=== PATIENT | male | born 1955 | race Caucasian/White ===

== ENCOUNTER 2018-04-19 16:00 | Inpatient (IN) ==
[2018-04-19 18:58] LABS: Appearance,Urine CLEAR; Bilirubin,Urine NEG (NEG); Color,Urine YELLOW; Glucose,Urine (UA) NEGATIVE (NEG); Leukocyte Esterase,Urine NEG /uL (NEG); Protein,Urine NEG (NEG); Specific Gravity,Urine 1.017 (1.000-1.035); Urine Blood NEG mg/dL (<0.03)
[2018-04-19 19:15] LABS: Basophils # (Auto) 0 K/mcL (0.0-0.3); Basophils % (Auto) 0.4 % (0.0-2.0); Eosinophils # (Auto) 0.1 K/mcL (0.0-0.7); Eosinophils % (Auto) 1.3 % (0.0-7.0); Granulocytes % (Auto) 60.9 % (38.0-78.0); Lymphocytes # (Auto) 1.6 K/mcL (1.5-4.8); Lymphocytes % (Auto) 27.7 % (15.5-49.0); Mean Cell Volume 101.3 fL (80.0-100.0); Mean Corpuscular Hemoglobin 34.5 pg (26.0-34.0); Monocytes # (Auto) 0.6 K/mcL (0.1-0.9); Monocytes % (Auto) 9.7 % (1.0-12.0); Platelet Count 104 K/mcL (140-440); RBC 4.81 M/mcL (4.50-5.90); Red Cell Distribution Width 13.9 % (11.5-14.5)
[2018-04-19 19:49] LABS: Blood Urea Nitrogen 7 mg/dl (8-23)
[2018-04-23] MEDS ORDERED: oxyCODONE 10 MG TAB.ER.12H PO SCH ×2 (07:00→07:15)
[2018-04-23] MEDS ORDERED: ceFAZolin 1 GM VIAL IV SCH ×2 (07:00→07:15)
[2018-04-23] MEDS ORDERED: CELECOXIB 200 MG CAPSULE PO SCH ×2 (07:00→07:15)
[2018-04-23] MEDS ORDERED: ACETAMINOPHEN 500 MG TABLET PO SCH ×2 (07:00→07:15)
[2018-04-23] MEDS ORDERED: 0.9 % SODIUM CHLORIDE 9 ML, KETOROLAC 30 MG, ROPIVACAINE HCL/PF 49.5 ML, EPINEPHrine 0.... IJ SCH ×2 (07:00→07:30)
[2018-04-23] MEDS ORDERED: PREGABALIN 75 MG CAPSULE PO SCH ×2 (07:00→07:15)
[2018-04-23] MEDS ORDERED: LIDOCAINE HCL/PF 100 MG/5 ML SYRINGE IV ONE (08:55)
[2018-04-23] MEDS ORDERED: PROPOFOL 200 MG/20 ML VIAL IV ONE (08:55)
[2018-04-23] MEDS ORDERED: DEXAMETHASONE 10 MG/ML VIAL IV ONE (08:55)
[2018-04-23] MEDS ORDERED: ROPIVACAINE HCL/PF 20 ML VIAL IJ ONE (08:55)
[2018-04-23] MEDS ORDERED: ONDANSETRON 4 MG/2 ML VIAL IV ONE (08:55)
[2018-04-23] MEDS ORDERED: TRANEXAMIC ACID 1,000 MG/10 ML VIAL IV ONE (08:55)
[2018-04-23] MEDS ORDERED: MIDAZOLAM 5 MG/5 ML VIAL IV ONE (08:55)
--- NOTE | 2018-04-23 08:55 | Brief Operative Note ---
Date of procedure: 04/23/18 Pre-op diagnosis: left knee djd severe Post-op diagnosis: same Procedure: left tka with robot Grafts/Implants: Yes Anesthesia: GETA Complications: none Surgeon: Lg Vickers Claim Review Medical Director: Selvin Pineda Estimated blood loss (cc): 50 Tourniquet Time (Minutes): 50 Specimens Removed/Pathology: none sent Condition: stable Disposition: PACU
[2018-04-23] MEDS ORDERED: HYDROmorphone 2 MG/ML VIAL IV PRN (08:56)
[2018-04-23] MEDS ORDERED: ONDANSETRON 4 MG/2 ML VIAL IV PRN ×2 (08:56→10:39)
[2018-04-23] MEDS ORDERED: BENZOCAINE/MENTHOL 1 LOZENGE PO PRN ×2 (08:56→10:39)
[2018-04-23] MEDS ORDERED: TRANEXAMIC ACID 1,000 MG/10 ML VIAL IV SCH (08:56)
[2018-04-23] MEDS ORDERED: POLYETHYLENE GLYCOL 3350 17 GM PACKET PO PRN (08:56)
[2018-04-23] MEDS ORDERED: ACETAMINOPHEN 325 MG TABLET PO PRN (08:56)
[2018-04-23] MEDS ORDERED: MAGNESIUM HYDROXIDE 30 ML ORAL.SUSP PO PRN (08:56)
[2018-04-23] MEDS ORDERED: FLEETS ADULT ENEMA PR PRN (08:56)
[2018-04-23] MEDS ORDERED: BISACODYL 10 MG SUPP.RECT PR PRN (08:56)
[2018-04-23] MEDS ORDERED: IBUPROFEN 800 MG TABLET PO PRN (08:58)
[2018-04-23] MEDS ORDERED: GENTAMICIN SULFATE 800 MG/20 ML VIAL IR ONE (09:35)
[2018-04-23] MEDS ORDERED: LACTATED RINGERS 250 ML IV PRN (10:39)
[2018-04-23] MEDS ORDERED: NALOXONE HCL 0.4 MG/ML VIAL IV PRN (10:39)
[2018-04-23] MEDS ORDERED: MEPERIDINE 25 MG/ML SYRINGE IV PRN (10:39)
[2018-04-23] MEDS ORDERED: diphenhydrAMINE 50 MG/ML VIAL IV PRN (10:39)
[2018-04-23] MEDS ORDERED: FLUMAZENIL 0.1 MG/ML ML IV PRN (10:39)
[2018-04-23] MEDS ORDERED: IPRATROPIUM/ALBUTEROL 3 ML AMPUL.NEB NEB PRN (10:39)
[2018-04-23] MEDS ORDERED: fentaNYL 100 MCG/2 ML VIAL IV PRN (10:39)
[2018-04-23] MEDS ORDERED: PROMETHAZINE 25 MG/ML VIAL IV PRN (10:39)
[2018-04-23] MEDS ORDERED: LACTATED RINGERS 1,000 ML IV SCH (10:45)
--- NOTE | 2018-04-23 11:55 | XRay Report ---
CLINICAL INFORMATION: post surgery COMPARISON: None. FINDINGS: Total knee prostheses is anatomically aligned. No osseous abnormality. Periarticular gas and soft tissue seen as expected. IMPRESSION: Negative Interpreted and Authenticated by: Dilip Bernstein 04/23/18
--- NOTE | 2018-04-23 12:08 | Operative Note ---
DATE OF OPERATION: 04/23/2018 POSTOPERATIVE DIAGNOSES: Right knee degenerative arthritis, severe, with ACL rupture. POSTOPERATIVE DIAGNOSES: Right knee degenerative arthritis, severe, with ACL rupture. PROCEDURE: Right total knee arthroplasty with Franco robot. SURGEON: Lg Vickers M.D. SOFTWARE ENGINEER [employer] SERVICES: Selvin Pineda PA-C. IMPLANTS: Bernardo components, both cemented with a long stem 50 mm and wedges, 14 mm poly, a 35 mm oval patellar button. DESCRIPTION OF PROCEDURE: The patient was brought to the operating room and put to sleep with general LMA anesthesia. Once asleep, the patient had the right leg sterilely prepped and draped in the usual sterile fashion. A timeout was performed. We confirmed the operative leg. Preop antibiotics and tranexamic acid had already been given and Ioban placed over the skin. The tourniquet was inflated to 250 pounds of pressure. We then made a midline incision, a midvastus approach performed. Two pins above and below the knee were placed, and we exposed the joint and removed osteophytes. We registered the center of hip rotation, registered thirty points on the femur and tibia, registered the arrays. We balanced the knee at 15 degrees and 90 degrees of flexion. Once all this was done, it was noted the patient had about 6 degrees of varus malformation and 9 degrees of hyperextension. With this, we then proceeded with the case. We cut our tibial cut first and then our femoral cuts, and chamfer and distal cuts were made last. The bony fragments were removed. The osteophytes were removed. Once done, we then irrigated thoroughly and then punched into place the tibial baseplate. The rotation was set by the computer and robot and the components were trialed. We went up to the size of 13, but it was still a little loose at this point. We then placed wedges and elevated this up to where the total combination of the tibial plate was going to be 14. This gave much better stability, full range of motion. We irrigated thoroughly and cemented into the place the above-mentioned sizes with a 50 mm stem added to the tibial tray with 5 mm wedge augments taking us up to 14 mm in total thickness. This gave us excellent position. We irrigated thoroughly. Once done, we then cemented the femur and a 9 mm poly with a dished implant was placed or constrained liner. We then prepared the patella. Its total thickness was 25. We cut this to [address] a 35 mm oval patella with a small chamfer laterally. This seemed to track perfectly. We irrigated and then closed the midvastus approach after deflating the tourniquet at approximately 60 minutes. The midvastus approach was closed with #1 Stratafix x2 sutures. This was a running self-locking stitch. Excellent repair achieved. We irrigated thoroughly and closed the skin with 2-0 Vicryl and adhesive closure. The patient tolerated this well without complication. GALO:ashley Job ID: [id number] Doc ID: [id number] Lg Vickers MD
[2018-04-23] MEDS: 0.9 % SODIUM CHLORIDE 10 ML SYRINGE IV SCH ×2 (13:11→20:25)
[2018-04-23] MEDS: ASPIRIN 325 MG ENTERIC COATED TABLET PO SCH ×2 (13:19→20:24)
[2018-04-23] MEDS: KETOROLAC 15 MG/ML VIAL IV SCH ×3 (13:19→23:49)
[2018-04-23] MEDS: DOCUSATE SODIUM 100 MG CAPSULE PO SCH ×2 (13:19→20:24)
[2018-04-23] MEDS: 0.45 % SODIUM CHLORIDE 1,000 ML IV SCH (15:16)
[2018-04-23] MEDS: oxyCODONE/APAP 5/325MG TABLET PO PRN ×3 (15:16→20:25)
[2018-04-23] MEDS: ceFAZolin 1 GM VIAL IV SCH ×2 (15:59→23:52)
[2018-04-23] MEDS ORDERED: SENNOSIDES 1 TABLET PO SCH (21:00)
[2018-04-23] MEDS ORDERED: TEMAZEPAM 15 MG CAPSULE PO PRN (21:00)
[2018-04-24] MEDS: 0.45 % SODIUM CHLORIDE 1,000 ML IV SCH ×2 (01:14→03:42)
[2018-04-24] MEDS: oxyCODONE/APAP 5/325MG TABLET PO PRN ×2 (02:40→09:05)
[2018-04-24] MEDS: KETOROLAC 15 MG/ML VIAL IV SCH (06:19)
[2018-04-24] MEDS: 0.9 % SODIUM CHLORIDE 10 ML SYRINGE IV SCH (06:20)
--- NOTE | 2018-04-24 06:57 | Orthopedic Progress Note ---
Subjective Patient information: Note initiated : 04/24/18 at 6:56 am Service Date, if different from initiated Date: [] Patient: Benjamin Fabian 62 y/o M admitted on 04/23/18 for RIGHT TOTAL KNEE ARTHROPLASTY STACI. Chief Complaint: [Pt is stable this morning on post operative day 1 without any significant concerns or complaints. Patients vital signs have remained stable. Patients dressing is dry and is grossly intact from a neurovascular and motor standpoint. Patients 10 point ROS is otherwise negative. Objective Vital signs: Vital Signs Temp Pulse Resp BP Pulse Ox 04/24/18 03:02 97.4 F 47 L 16 105/63 93 04/24/18 00:00 97.5 F 51 L 16 101/61 95 04/23/18 20:28 95 04/23/18 20:10 97.7 F 53 L 20 106/68 94 04/23/18 17:09 98.3 F 55 L 20 101/62 94 04/23/18 14:07 107/69 96 04/23/18 13:07 113/72 98 04/23/18 12:52 105/69 96 04/23/18 12:37 109/71 94 04/23/18 12:22 49 L 12 116/75 96 04/23/18 12:21 97 04/23/18 12:07 97.3 F 122/76 93 04/23/18 11:58 97.9 F 81 15 115/61 96 04/23/18 11:49 97.4 F 50 L 12 114/65 96 04/23/18 11:35 97.7 F 50 L 14 115/59 100 04/23/18 11:20 97.8 F 72 14 115/60 100 04/23/18 11:15 97.8 F 75 13 119/60 100 04/23/18 11:10 97.8 F 77 14 137/65 100 04/23/18 11:05 97.8 F 93 H 15 138/80 100 04/23/18 11:00 97.7 F 84 14 128/69 100 04/23/18 10:55 97.7 F 92 H 15 152/97 99 Intake and Output 04/23/18 04/24/18 04/24/18 21:59 05:59 13:59 Intake Total 640 / 640 2120 / 2120 Output Total 1525 / 1525 1176 / 1176 Balance -885 / -885 944 / 944 Intake: IV 1000 / 1000 Sodium Chloride 0.45% 1,000 ml 1000 / 1000 @ 100 mls/hr IV .Q10H [facility] Rx#: [id number] Oral 640 / 640 1120 / 1120 Output: Urine Catheter Amount 725 / 725 Straight 725 / 725 Void Amount 800 / 800 1175 / 1175 # of times incontinent of urine 1 Other: Meal Dinner Percent of Meal Consumed 100% Urine Appearance Clear Clear Straight Clear Urine Color Dark Yellow Pale Straight Light Emma Urine Odor Normal Normal Weight 200 lb Intake & Output: Intake & Output 04/23/18 04/24/18 04/24/18 21:59 05:59 13:59 Intake Total 640 / 640 0 / 2120 Output Total 1525 / 1525 1176 / 1176 Balance -885 / -885 944 / 944 Weight 200 lb Intake: IV 1000 / 1000 Sodium Chloride 0.45% 1,000 ml 1000 / 1000 @ 100 mls/hr IV .Q10H [facility] Rx#: [id number] Oral 640 / 640 1120 / 1120 Output: Urine Catheter Amount 725 / 725 Straight 725 / 725 Void Amount 800 / 800 1175 / 1175 # of times incontinent of urine Other: Meal Dinner Percent of Meal Consumed 100% Urine Appearance Clear Clear Straight Clear Urine Color Dark Yellow Pale Straight Light Emma Urine Odor Normal Normal Incision: Yes healing Incision clean and dry: Yes Dressing: Yes clean Weight bearing status: full Neurological exam IM: Yes motor sensory intact, Yes neurovascular intact Extremities exam IM: Yes Foot pink and warm, Yes neurovascular intact - Labs CBC & BMP: 04/24/18 04:02 04/19/18 16:28 Labs: Orthopedic Labs 04/19/18 16:28 PT 15.4 H INR 1.2 H APTT 33 04/24/18 04/19/18 04:02 16:28 Hgb 16.6 H Hct 39.0 L 48.7 Assessment and Plan (1) Hx of total knee arthroplasty The patient has been educated regarding dressing care, Physical Therapy recommendations, home exercises, restrictions, and follow up appointments. The patient has had all necessary DME prescribed. The patient has remained relatively stable during their hospital course. Leave Dermabond patch intact until followup Status: Acute
--- NOTE | 2018-04-24 06:59 | Discharge Summary ---
Ortho Discharge - TKA - Patient Instructions Diet: Regular Diet Activity: activity as tolerated, weight bearing as tolerated Total Knee Protocol: For Total Knee: Start ROM HARLEY with stationary bike or rocking chair. Work on gaining full extension of knee. Posterior dislocation precautions provided. Hip abductor strengthening and gait training instructions provided. Apply Cryocuff as instructed. Dressing Care: May shower in 2 days - Problem Maintenance (1) Hx of total knee arthroplasty Status: Acute - Follow Up Plan Follow Up Appointments: Selvin Pineda PA-C [Physician Pattern Hand] - 05/17/18 1:40 pm Disposition: Home, Self-Care Prognosis: Good Rehab Potential: Good I certify that the patient requires SNF services: No Overall status at discharge: patient is progressing back to baseline - Orders For Discharge Prescriptions: Aspirin [Ecotrin] 325 mg PO BID #60 tab.ec Docusate Sodium [Colace] 100 mg PO BID #60 capsule oxyCODONE/APAP [Percocet 5-325 mg] 1 - 2 tab PO Q4HP PRN #75 tablet PRN Reason: Pain Level 3-6
[2018-04-24] MEDS: ASPIRIN 325 MG ENTERIC COATED TABLET PO SCH (09:05)
[2018-04-24] MEDS: DOCUSATE SODIUM 100 MG CAPSULE PO SCH (09:05)
== END 2018-04-24 11:50 | disposition home or self-care (01) | DRG 470 ==
LOC: MEDSUR 04-23 06:23
PROVIDERS: ADMIT Orthopaedic Surgery; ATTEND Orthopaedic Surgery
CPT/HCPCS: 62322; 90686; 97161; C1713; C1776; J0171; J0690; J1100; J1170; J1580; J1885; J2001; J2175; J2250; J2405; J2795; J3010; J7050; J7120